=== PATIENT | female | born 1990 | race Caucasian/White ===

== ENCOUNTER → 2017-05-13 | Outpatient (CLI) | payer OTHER ==
--- NOTE | 2017-05-14 04:09 | REP ---
Clinical: Stage III renal disease. Comparison: None. Findings: The kidneys demonstrate innumerable, bulky bilateral renal calcifications measuring up to approximately 3 cm along with scattered bilateral hypodensities suggesting cysts and possibly dilated calyces. The bilateral ureters appear somewhat prominent but without obstructing ureteral calcifications and the bladder is grossly unremarkable and without wall thickening, mass lesion, or bladder calculi. Liver, spleen, pancreas, gallbladder, and bilateral adrenal glands are normal for noncontrast evaluation. No hepatic or pancreatic cysts are identified. The enteric system is without obstruction or acute inflammatory process. Small appendicolith noted within the normal appendix. Pelvis demonstrates normal bladder and age-appropriate uterus/adnexa. IUD in satisfactory position. No pelvic fluid or ascites. No free air. No retroperitoneal or intraperitoneal adenopathy. No mass lesion. Surrounding musculoskeletal structures are intact and without focal osseous abnormality. Lung bases are clear. Impression: 1. Marked bilateral nephrolithiasis/nephrocalcinosis with calcifications up to approximately 3 cm. No acute hydroureternephrosis or obstructing ureteral calculi are identified. Bladder is unremarkable. Signed by Russell Bentley MD 05/14/2017 04:01 A
== END ==
LOC: M RAD 13:25
PROVIDERS: ATTEND Internal Medicine Nephrology
DX: N18.3 Chronic kidney disease, stage 3 (moderate) (principal); N29 Other disorders of kidney and ureter in diseases classified elsewhere; E83.59 Other disorders of calcium metabolism

== ENCOUNTER → 2017-09-30 | Outpatient (REF) | payer OTHER | LOC: M SFHCLERA 10:35 | PROVIDERS: ATTEND Physician Assistant | DX: N30.01 Acute cystitis with hematuria (principal); N89.8 Other specified noninflammatory disorders of vagina ==

== ENCOUNTER → 2017-09-30 | Outpatient (CLI) | payer OTHER ==
--- NOTE | 2017-09-30 12:26 | REP ---
PELVIC ULTRASOUND: Real-time sonographic evaluation of the pelvis is performed utilizing transabdominal and endovaginal technique. The bladder measures 9.2 x 8.1 x 11.4 cm. The uterus measures 8.9 x 3.7 x 5.7 cm. The endometrial thickness is 6 mm. There is a small amount of endometrial fluid. An IUD is seen in the endometrial canal. Right ovary measures 4.4 x 2.6 x 4.1 cm and the left ovary 3.6 x 2.8 x 3.2 cm. Small cystic structure of the left ovary may represent dominant follicle 2.1 x 1.5 x 2.4 cm. There is no other evidence of adnexal mass or free fluid. There is no evidence of ovarian torsion with blood flow seen in each ovary with duplex Doppler evaluation. IMPRESSION: IUD in the endometrial canal with a small amount of endometrial fluid noted. Dominant follicle left ovary with a maximum diameter of 2.4 cm. No torsion. Signed by Maksim Haley MD 09/30/2017 05:25 P
== END ==
LOC: M LRY 10:37
PROVIDERS: ATTEND Physician Assistant
DX: R10.32 Left lower quadrant pain (principal); T83.32XA Displacement of intrauterine contraceptive device, initial encounter

== ENCOUNTER → 2018-01-01 | Outpatient (REF) | payer OTHER | LOC: M SFHCLERA 15:02 | DX: J02.9 Acute pharyngitis, unspecified (principal) ==

== ENCOUNTER → 2018-01-27 | Outpatient (CLI) | payer OTHER | LOC: M LRY 16:21 | DX: R50.9 Fever, unspecified (principal); R05 Cough | CPT/HCPCS: 71046 ==

== ENCOUNTER → 2018-01-27 | Outpatient (REF) | payer OTHER | LOC: M SFHCLERA 16:51 | DX: R50.9 Fever, unspecified (principal) ==